=== PATIENT | male | born 1935 | race Caucasian/White ===

== ENCOUNTER 2017-04-11 11:00 | Emergency (ER) | payer MEDICARE, OTHER ==
[2017-04-11 11:43] LABS: #Basophils 0.1 thou/uL (0.0-0.2); #Eosinphils 0.1 thou/uL (0.0-0.7); #Lymphocytes 0.9 thou/uL (1.20-3.40); #Monocytes 0.3 thou/uL (0.11-0.59); #Neutrophils 3.8 thou/uL (1.40-6.50); %Basophils 1.1 % (0.0-1.0); %Eosinophils 1.1 % (0.0-10.0); %Lymphocytes 17.4 % (21.0-51.0); %Monocytes 5.6 % (0.0-10.0); %Neutrophils 74.8 % (42.0-75.0); Hemoglobin 12.6 g/dL (14.0-18.0); Mean Corpuscular HGB CONC 33.7 g/dL (32.0-36.0); Mean Corpuscular Volume 98.1 fl (80.0-94.0); Mean Platelet Volume 9.4 fL (7.4-10.4); Platelet Count 165 thou/uL (130-400); RBC Distribution Width 16.2 % (11.5-14.5); Red Blood Cell (RBC) Count 3.82 mill/uL (4.70-6.10); White Blood Cell (WBC) Count 5.1 thou/uL (4.8-10.8)
[2017-04-11 11:59] LABS: ALT (SGPT) 12 U/L (8-55); AST (SGOT) 16 U/L (5-34); Albumin 3.7 g/dL (3.4-4.8); Alkaline Phosphatase 57 U/L (40-150); Anion Gap 13 mmol/L (10-20); BUN (Urea Nitrogen) 9 mg/dL (8.4-25.7); Bilirubin, Total 0.6 mg/dL (0.2-1.2); Calc. Creatinine Clearance 0 mL/min (70-130); Calcium 8.9 mg/dL (7.8-10.44); Carbon Dioxide 22 mmol/L (23-31); Chloride 110 mmol/L (98-107); Estimated GFR-MDRD Greater than 90; Globulin 3.2 g/dL (2.4-3.5); Glucose 108 mg/dL (83-110); Potassium 3.5 mmol/L (3.5-5.1); Protein, Total 6.9 g/dL (5.8-8.1); Sodium 141 mmol/L (136-145)
[2017-04-11 12:02] LABS: Troponin I Less than 0.010 ng/mL (< 0.028)
--- NOTE | 2017-04-11 18:11 | RAD ---
CHEST TWO VIEWS 04/11/17 Comparison is made with a 09/19/13 study. The heart is normal in size for age. The aorta is quite tortuous, dilated and calcified, but unchang ed from before. No lobar consolidations or effusions were seen. there is a little bit of basilar str eaking, mainly on the left, which may be minimal atelectasis. Bowel is seen trapped between the live r and diaphragm in the right upper quadrant. What I presume to be a TENS unit is seen posteriorly. IMPRESSION: Chronic changes but no acute finding. POS: HOME
== END 2017-04-11 12:46 | disposition home or self-care (01) ==
LOC: BURERS 11:00
DX: I10 Essential (primary) hypertension (principal); F43.20 Adjustment disorder, unspecified; Z87.891 Personal history of nicotine dependence; Z79.02 Long term (current) use of antithrombotics/antiplatelets; Z79.891 Long term (current) use of opiate analgesic; Z79.899 Other long term (current) drug therapy
CPT/HCPCS: 71020; 80053; 82553; 84443; 84484; 85025; 93005; 94760

== ENCOUNTER 2018-01-13 18:39 | Emergency (ER) | payer MEDICARE, OTHER ==
[2018-01-13 19:29] LABS: #Basophils 0.1 thou/uL (0.0-0.2); #Eosinphils 0.2 thou/uL (0.0-0.7); #Lymphocytes 0.8 thou/uL (1.20-3.40); #Monocytes 0.5 thou/uL (0.11-0.59); #Neutrophils 4.4 thou/uL (1.40-6.50); %Basophils 1.3 % (0.0-1.0); %Eosinophils 2.9 % (0.0-10.0); %Neutrophils 74.8 % (42.0-75.0); Hemoglobin 11.1 g/dL (14.0-18.0); Mean Corpuscular HGB CONC 33.9 g/dL (32.0-36.0); Mean Corpuscular Hemoglobin 32.9 pg (27.0-31.0); Mean Corpuscular Volume 97.3 fl (80.0-94.0); Mean Platelet Volume 7.6 fL (7.4-10.4); Platelet Count 162 thou/uL (130-400); RBC Distribution Width 17.2 % (11.5-14.5); Red Blood Cell (RBC) Count 3.36 mill/uL (4.70-6.10); White Blood Cell (WBC) Count 5.8 thou/uL (4.8-10.8)
[2018-01-13 19:38] LABS: ALT (SGPT) 17 U/L (8-55); AST (SGOT) 23 U/L (5-34); Albumin 3.7 g/dL (3.4-4.8); Alkaline Phosphatase 72 U/L (40-150); Anion Gap 13 mmol/L (10-20); BUN (Urea Nitrogen) 14 mg/dL (8.4-25.7); Bilirubin, Total 0.4 mg/dL (0.2-1.2); Calc. Creatinine Clearance 0 mL/min (70-130); Calcium 9.2 mg/dL (7.8-10.44); Carbon Dioxide 27 mmol/L (23-31); Chloride 103 mmol/L (98-107); Estimated GFR-MDRD 87; Globulin 3.3 g/dL (2.4-3.5); Glucose 103 mg/dL (83-110); Potassium 3.9 mmol/L (3.5-5.1); Sodium 139 mmol/L (136-145)
== END 2018-01-13 20:36 | disposition short-term general hospital (02) ==
LOC: BURERS 18:39
DX: L03.116 Cellulitis of left lower limb (principal); I10 Essential (primary) hypertension; Z87.891 Personal history of nicotine dependence
CPT/HCPCS: 80053; 85025; 96374; J3370

== ENCOUNTER 2018-07-13 17:00 | Emergency (ER) | payer MEDICARE, OTHER | END 2018-07-13 18:24 | disposition home or self-care (01) | LOC: BURERS 17:00 | DX: T63.441A Toxic effect of venom of bees, accidental (unintentional), initial encounter (principal); E78.5 Hyperlipidemia, unspecified; I73.9 Peripheral vascular disease, unspecified; I10 Essential (primary) hypertension; Z87.891 Personal history of nicotine dependence | CPT/HCPCS: 99282 ==

== ENCOUNTER 2018-07-16 12:44 | Emergency (ER) | payer MEDICARE, OTHER ==
[2018-07-16] MEDS ORDERED: Morphine 4 MG/ML Carpuject ONE (13:47)
[2018-07-16] MEDS ORDERED: Ondansetron HCl/PF 4 MG/2 ML Vial ONE (13:48)
[2018-07-16 13:59] LABS: #Basophils 0.1 thou/uL (0.0-0.2); #Eosinphils 0.1 thou/uL (0.0-0.7); #Lymphocytes 0.7 thou/uL (1.20-3.40); #Monocytes 0.3 thou/uL (0.11-0.59); #Neutrophils 3.9 thou/uL (1.40-6.50); %Basophils 1.1 % (0.0-1.0); %Eosinophils 2.4 % (0.0-10.0); %Lymphocytes 14.2 % (21.0-51.0); %Monocytes 6.7 % (0.0-10.0); %Neutrophils 75.6 % (42.0-75.0); Hemoglobin 11.9 g/dL (14.0-18.0); Mean Corpuscular HGB CONC 35.2 g/dL (32.0-36.0); Mean Corpuscular Hemoglobin 33.2 pg (27.0-31.0); Mean Corpuscular Volume 94.2 fL (78.0-98.0); Mean Platelet Volume 9.4 fL (7.4-10.4); Platelet Count 160 thou/uL (130-400); RBC Distribution Width 16.7 % (11.5-14.5); White Blood Cell (WBC) Count 5.1 thou/uL (4.8-10.8)
[2018-07-16 14:15] LABS: ALT (SGPT) 14 U/L (8-55); AST (SGOT) 20 U/L (5-34); Albumin 3.7 g/dL (3.4-4.8); Alkaline Phosphatase 68 U/L (40-150); Anion Gap 12 mmol/L (10-20); BUN (Urea Nitrogen) 12 mg/dL (8.4-25.7); Bilirubin, Total 0.4 mg/dL (0.2-1.2); Calc. Creatinine Clearance 0 mL/min (70-130); Calcium 9.2 mg/dL (7.8-10.44); Carbon Dioxide 28 mmol/L (23-31); Chloride 102 mmol/L (98-107); Estimated GFR-MDRD Greater than 90; Globulin 3.1 g/dL (2.4-3.5); Glucose 108 mg/dL (83-110); Protein, Total 6.8 g/dL (5.8-8.1); Sodium 139 mmol/L (136-145)
[2018-07-16 14:18] LABS: Potassium 2.9 mmol/L (3.5-5.1)
--- NOTE | 2018-07-16 20:14 | RAD ---
LEFT FOOT THREE VIEWS: 07/16/18 There appears to be some swelling over the forefoot dorsally. No fracture was visible at this time. T he bones are osteopenic which could mask subtle injuries. No dislocation was seen. IMPRESSION: Soft tissue swelling. POS: HOME
== END 2018-07-16 15:24 | disposition short-term general hospital (02) ==
LOC: BURERS 12:44
DX: L03.032 Cellulitis of left toe (principal); E87.6 Hypokalemia; I73.9 Peripheral vascular disease, unspecified; E78.5 Hyperlipidemia, unspecified; I10 Essential (primary) hypertension; Z87.891 Personal history of nicotine dependence
CPT/HCPCS: 80053; 83605; 85025; 96365; 96375; J2270; J2405; J3370

== ENCOUNTER 2018-08-26 12:18 | Emergency (ER) | payer MEDICARE, OTHER ==
[2018-08-26] MEDS ORDERED: Ciprofloxacin 500 MG TAB ONE (12:52)
== END 2018-08-26 13:16 | disposition home or self-care (01) ==
LOC: BURERS 12:18
DX: L03.032 Cellulitis of left toe (principal); I10 Essential (primary) hypertension; I73.9 Peripheral vascular disease, unspecified; F17.210 Nicotine dependence, cigarettes, uncomplicated; E78.5 Hyperlipidemia, unspecified
CPT/HCPCS: 87070; 87077; 87186; 87205; 99283

== ENCOUNTER 2018-10-02 14:11 | Emergency (ER) | payer MEDICARE, OTHER | END 2018-10-02 15:00 | disposition home or self-care (01) | LOC: BURERS 14:11 | DX: I10 Essential (primary) hypertension (principal); E78.5 Hyperlipidemia, unspecified; F17.210 Nicotine dependence, cigarettes, uncomplicated | CPT/HCPCS: 99283 ==

== ENCOUNTER 2018-10-20 10:34 | Emergency (ER) | payer MEDICARE, OTHER ==
[2018-10-20] MEDS ORDERED: Ciprofloxacin 500 MG TAB ONE ×2 (11:01→11:04)
[2018-10-20] MEDS ORDERED: Morphine 10 MG/ML VIAL ONE (11:15)
== END 2018-10-20 11:37 | disposition home or self-care (01) ==
LOC: BURERS 10:34
DX: L03.116 Cellulitis of left lower limb (principal); I10 Essential (primary) hypertension; I73.9 Peripheral vascular disease, unspecified; F17.210 Nicotine dependence, cigarettes, uncomplicated; E78.5 Hyperlipidemia, unspecified; Z79.899 Other long term (current) drug therapy; Z79.891 Long term (current) use of opiate analgesic
CPT/HCPCS: 87070; 87077; 87186; 87205; 96372; 99406; J2270

== ENCOUNTER 2018-11-01 13:21 | Emergency (ER) | payer MEDICARE, OTHER ==
[2018-11-01 14:02] LABS: #Eosinphils 0.1 thou/uL (0.0-0.7); #Lymphocytes 0.9 thou/uL (1.20-3.40); #Monocytes 0.3 thou/uL (0.11-0.59); #Neutrophils 3.1 thou/uL (1.40-6.50); %Basophils 0.8 % (0.0-1.0); %Eosinophils 2.4 % (0.0-10.0); %Lymphocytes 19.9 % (21.0-51.0); %Monocytes 7.6 % (0.0-10.0); %Neutrophils 69.3 % (42.0-75.0); Hemoglobin 12.1 g/dL (14.0-18.0); Mean Corpuscular HGB CONC 34.1 g/dL (32.0-36.0); Mean Corpuscular Hemoglobin 33.2 pg (27.0-31.0); Mean Corpuscular Volume 97.3 fL (78.0-98.0); Mean Platelet Volume 7.1 fL (7.4-10.4); Platelet Count 186 thou/uL (130-400); RBC Distribution Width 17.3 % (11.5-14.5); Red Blood Cell (RBC) Count 3.64 mill/uL (4.70-6.10); White Blood Cell (WBC) Count 4.5 thou/uL (4.8-10.8)
[2018-11-01 14:19] LABS: ALT (SGPT) 7 U/L (8-55); AST (SGOT) 17 U/L (5-34); Albumin 3.1 g/dL (3.4-4.8); Alkaline Phosphatase 54 U/L (40-150); Anion Gap 11 mmol/L (10-20); BUN (Urea Nitrogen) 12 mg/dL (8.4-25.7); Bilirubin, Total 0.3 mg/dL (0.2-1.2); Calc. Creatinine Clearance 0 mL/min (70-130); Carbon Dioxide 29 mmol/L (23-31); Chloride 102 mmol/L (98-107); Estimated GFR-MDRD Greater than 90; Globulin 3.7 g/dL (2.4-3.5); Glucose 106 mg/dL (83-110); Potassium 4.7 mmol/L (3.5-5.1); Protein, Total 6.8 g/dL (5.8-8.1); Sodium 137 mmol/L (136-145)
[2018-11-01 14:37] LABS: CKMB 6.4 ng/mL (0-6.6)
--- NOTE | 2018-11-01 14:43 | RAD ---
FRONTAL VIEW CHEST: Date: 11/01/18 COMPARISON: 04/11/17. INDICATION: Chest pain. FINDINGS: Patchy left basilar density. There is stable prominence of each hilar region. There is ectasia and to rtuosity of the calcified thoracic aorta. Linear density at the right lower lung zone may be related to scar. There is osseous degenerative change. Electronic lead overlies the thoracic spine. IMPRESSION: 1. Patchy left basilar density. This could relate to pneumonia or alternatively edema. Correlate cli nically and, as necessary, follow-up with 2 view chest may be obtained for further characterization. 2. Stable prominence of each hilar region, along with ectasia and tortuosity of the calcified thorac ic aorta. POS: [facility]
--- NOTE | 2018-11-01 15:42 | CT ---
CT CHEST WITH IV CONTRAST: HISTORY: Chest pain. Abnormal chest radiograph. FINDINGS: Lungs are hyperinflated with scattered areas of scaring. No focal parenchymal infiltrate. Centered at the anterior aspect of the right 2nd rib is an expansile destructive mass measuring up to 2.7 cm length x 6.1 cm width x 3.8 cm depth. Mild underlying compressive atelectasis. Prominent calcifications throughout the arterial structures. IMPRESSION: 1. Right anterior chest wall mass centered at the right 2nd rib. Metastatic disease is the most lik lyubov diagnosis. For next step, please consider oncologic evaluation. CT-guided percutaneous biopsy c ould be performed if needed. 2. Atherosclerosis. 3. Chronic obstructive pulmonary disease. POS: [facility]
[2018-11-01 15:49] LABS: Clarity Clear (Clear)
[2018-11-01 15:50] LABS: Bilirubin Negative (Negative); Blood, Urine Negative (Negative); Glucose, Urine (Dipstick) Negative (Negative); Leukocyte Negative (Negative); Nitrite Negative (Negative); Protein, Urine (Dipstick) Negative (Neg-Trace); Specific Gravity, Urine 1.015 (1.005-1.030); Urobilinogen 0.2 mg/dL (0.2-1.0)
== END 2018-11-01 15:53 | disposition home or self-care (01) ==
LOC: BURERS 13:21
DX: I10 Essential (primary) hypertension (principal); D64.9 Anemia, unspecified; M89.8X9 Other specified disorders of bone, unspecified site; Z80.1 Family history of malignant neoplasm of trachea, bronchus and lung; Z85.828 Personal history of other malignant neoplasm of skin; Z79.891 Long term (current) use of opiate analgesic; Z79.899 Other long term (current) drug therapy
CPT/HCPCS: 36415; 71045; 71260; 80053; 81003; 82553; 84443; 84484; 85025; 93005

== ENCOUNTER 2019-10-26 19:08 | Emergency (ER) | payer MEDICARE, OTHER ==
[2019-10-26 19:58] LABS: #Eosinphils 0.1 thou/uL (0.0-0.7); #Monocytes 0.3 thou/uL (0.11-0.59); %Basophils 1.1 % (0.0-1.0); %Eosinophils 2.4 % (0.0-10.0); %Monocytes 6.1 % (0.0-10.0); %Neutrophils 68.4 % (42.0-75.0); Mean Corpuscular HGB CONC 32.3 g/dL (32.0-36.0); Mean Corpuscular Hemoglobin 32.1 pg (27.0-31.0); Mean Corpuscular Volume 99.2 fL (78.0-98.0); Mean Platelet Volume 9.5 fL (7.4-10.4); Platelet Count 154 thou/uL (130-400); RBC Distribution Width 16.5 % (11.5-14.5); Red Blood Cell (RBC) Count 3.76 mill/uL (4.70-6.10); White Blood Cell (WBC) Count 4.4 thou/uL (4.8-10.8)
[2019-10-26 20:11] LABS: ALT (SGPT) 12 U/L (8-55); AST (SGOT) 13 U/L (5-34); Albumin 3.7 g/dL (3.4-4.8); Alkaline Phosphatase 69 U/L (40-110); Anion Gap 14 mmol/L (10-20); BUN (Urea Nitrogen) 13 mg/dL (8.4-25.7); Bilirubin, Total 0.4 mg/dL (0.2-1.2); Calc. Creatinine Clearance 0 mL/min (70-130); Calcium 9.2 mg/dL (7.8-10.44); Carbon Dioxide 26 mmol/L (23-31); Chloride 104 mmol/L (98-107); Estimated GFR-MDRD 79; Globulin 3.5 g/dL (2.4-3.5); Glucose 86 mg/dL (83-110); Potassium 3.8 mmol/L (3.5-5.1); Protein, Total 7.2 g/dL (5.8-8.1); Sodium 140 mmol/L (136-145)
[2019-10-26] MEDS ORDERED: methylPREDNISolone Sod Succ/PF 125 MG/2 ML VIAL ONE (21:22)
--- NOTE | 2019-10-27 08:14 | RAD ---
AP PORTABLE CHEST: 10/26/2019 1942 HOURS COMPARISON: 11/01/2018 FINDINGS: The heart is normal in size. The aorta is tortuous and calcified, as usual. There is some volume loss on the right, to be expected from the prior lobectomy. There is some haziness in the right apex but it does not seem much different than the prior study. [id number], pathology here could easily hid e on this film. A little streaking is seen in the left lung base, near the costophrenic angle, which could be either an early infiltrate or some atelectasis. On this film, immediately beneath the right diaphragm, medially, there appears to be some air, but it is not clear if this is free air or trapped in the colon, which is insinuated between the liver and the diaphragm. Further investigation of this is warranted, particularly if the patient has any abdomi nal symptoms. IMPRESSION: 1. Expected right sided volume loss due to prior lobectomy. While there is no gross change since last year, CT is recommended as being much more sensitive to tack picker early and smaller changes of disease than this portable plain film. 2. Small amount of streaking over the left hemidiaphragm. Atelectasis versus early infiltrate. 3. Question of air beneath the right hemidiaphragm. See discussion above. Further followup warranted, depending upon the patient's symptoms. CODE T POS: HOME
== END 2019-10-26 21:40 | disposition home or self-care (01) ==
LOC: BURERS 19:08
DX: J44.1 Chronic obstructive pulmonary disease with (acute) exacerbation (principal); E78.5 Hyperlipidemia, unspecified; E78.00 Pure hypercholesterolemia, unspecified; I10 Essential (primary) hypertension; I73.9 Peripheral vascular disease, unspecified; F17.210 Nicotine dependence, cigarettes, uncomplicated; I72.9 Aneurysm of unspecified site; Z79.899 Other long term (current) drug therapy
CPT/HCPCS: 71045; 80053; 83880; 84484; 85025; 93005; 94760; 96374; J2930; J7620